=== PATIENT | male | born 1990 | race Caucasian/White ===

== ENCOUNTER → 2019-08-07 18:31 | Outpatient (BNVA) | payer SELFPAY | PROVIDERS: Visit Provider Nurse Practitioner Family | DX: J02.0 Streptococcal pharyngitis (principal) | CPT/HCPCS: 87880 ==

== ENCOUNTER 2020-02-12 15:42 | Emergency (ER) | payer SELFPAY ==
[2020-02-12 16:09] VITALS: BP 137/81; PULSE 78; RESP 16; TEMP 36.9; O2SAT 99; BMI 27.3
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
--- NOTE | 2020-02-12 16:17 | W.ED.EXTPRO ---
HPI - Extremity Problem General: Chief complaint: Extremity Injury, Lower Stated complaint: right ankle injury. Time Seen by Provider: 02/12/20 16:14 History of Present Illness: HPI Narrative: Patient jumped off a porch earlier today and then felt pain in his right midfoot and is hurt since hurts to bear weight. MD Complaint: extremity pain Onset (ago): hour(s) Pain Consistency: constant Location: right Severity scale (1-10): 4 Quality: aching Radiation: none Relieving factors: rest Exacerbating factors: weight bearing Associated symptoms: Reports no associated symptoms; Deny chest pain, fever(s) or rash Review of Systems Const: Denies: fever(s), chills or body aches Eyes: Denies: change in vision or blurry vision ENMT: Denies: throat pain or nasal congestion Card: Denies: chest pain or dyspnea on exertion Resp: Denies: dyspnea, productive cough or non-productive cough GI: Denies: abdominal pain, nausea or vomiting : Denies: difficulty urinating Musc: Reports: extremity pain (Right midfoot after jumping off a trailer house a day from the porch height) Skin/Breast: Denies: rash Neuro: Denies: headache(s) Psych: Denies: anxiety or depression Luis A/Lymph: Denies: easy bruising PFSH ED PFSH: Social History (Updated 02/12/20 @ 16:13 by Diego Matute RN) Smoking and tobacco status: never smoked Alcohol intake: never Substance/Drug Use: never Physical Exam Const: COMMON NORMALS: no acute distress, average body habitus and patient oriented x3 HENMT: COMMON NORMALS: normocephalic HEAD & SCALP: normal to inspection and normocephalic FACE & SINUS: normal facial exam Eye: COMMON NORMALS: conjunctivae normal GENERAL EYE: appearance normal, both eyes and all related structures CONJUNCTIVA: Yes conjunctivae normal Neck/C-Spine: COMMON NORMALS: no JVD Chest: COMMONS NORMALS: normal inspection of the chest Resp: COMMON NORMALS: normal respiratory effort and clear to auscultation bilaterally AUSCULTATION: clear to auscultation bilaterally Cardio: COMMON NORMALS: no JVD, regular rate and regular rhythm RATE: regular rate RHYTHM: regular rhythm GI: COMMON NORMALS: Normal to inspection, nondistended, normoactive bowel sounds present Extremity: COMMON NORMALS: normal to inspection and full ROM RIGHT LOWER EXTREMITY: Yes foot & digits (Pain with palpation to proximal midfoot lateral border mild swelling no bruising noted has full range of motion of toes good distal neurovascular status.) Neuro: COMMON NORMALS: patient oriented x3 Course Vital Signs: Vital signs: Vital Signs Temperature 98.4 F 02/12/20 16:09 Pulse Rate 78 02/12/20 16:09 Respiratory Rate 16 02/12/20 16:09 Blood Pressure 137/81 02/12/20 16:09 Pulse Oximetry 99 02/12/20 16:09 Discharge Plan Discharge Prescriptions: No Action No Known Home Medications RF: 0 Coding Level of Care Code ED Inspector Balance Truing for Triny Sharpe
[2020-02-12 16:54] VITALS: BP 142/74; PULSE 78; RESP 18; O2SAT 98
== END 2020-02-12 16:56 | disposition home or self-care (01) ==
PROVIDERS: Emergency Provider Nurse Practitioner Family
DX: S99.911A Unspecified injury of right ankle, initial encounter (principal); W17.89XA Other fall from one level to another, initial encounter
CPT/HCPCS: 12345; 73630; 99281; 99282

== ENCOUNTER 2021-12-10 16:31 | Emergency (ER) | payer SELFPAY ==
[2021-12-10 16:53] VITALS: BP 146/101; PULSE 90; RESP 16; TEMP 36.9; O2SAT 98
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
== END 2021-12-10 17:25 | disposition home or self-care (01) ==
PROVIDERS: Emergency Provider Nurse Practitioner Family
DX: R20.0 Anesthesia of skin (principal)
CPT/HCPCS: 99282

== ENCOUNTER 2022-07-15 18:16 | Emergency (ER) | payer SELFPAY ==
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
[2022-07-15 18:22] VITALS: BP 147/99; PULSE 92; RESP 16; O2SAT 98; BMI 28.8
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
[2022-07-15] MEDS: iohexol 350 mg/mL 500 mL Btl (per mL) IV (19:40)
[2022-07-15] MEDS: tetanus-dipt-pertussis 0.5 mL SDV IM (20:05)
[2022-07-15 21:00] VITALS: BP 158/103; PULSE 103; RESP 18; O2SAT 97
== END 2022-07-15 20:57 | disposition home or self-care (01) ==
PROVIDERS: Emergency Provider Emergency Medicine
DX: S42.001A Fracture of unspecified part of right clavicle, initial encounter for closed fracture (principal); S22.31XA Fracture of one rib, right side, initial encounter for closed fracture; S01.81XA Laceration without foreign body of other part of head, initial encounter; S06.9X9A Unspecified intracranial injury with loss of consciousness of unspecified duration, initial encounter; V49.40XA Driver injured in collision with unspecified motor vehicles in traffic accident, initial encounter; Z23 Encounter for immunization
CPT/HCPCS: 70450; 71260; 72125; 73590; 74177; 90471; 90715; 99285; Q9967